=== PATIENT | female | born 1940 | race Caucasian/White ===

== ENCOUNTER 2016-08-24 15:39 | Inpatient (IN) | payer MEDICAID, MEDICARE ==
[~2016-08-24] VITALS: Ht 170.2 cm; Wt 73.8 kg
[~2016-08-24 15:39] MED LIST: APIX5TAB PO; Acetaminophen PO; BISA10SU61 RC; DOCU-41 PO; GABA-502 PO; LIRA0.6P SQ; LOSA100T29 PO; METF500T4 PO; METH750T3 PO; METO75TA PO; OMEP40CA36 PO; POLY17PO6 PO; PRAV40TA PO; PSEU240T6 PO; PTU50T PO; Senna/Docusate Sodium PO
--- NOTE | 2016-08-24 15:41 | ED.REPORT ---
HPI-Neurologic Deficit Date of Service Aug 24, 2016 ED Provider: Timi Lincoln MD Nursing Notes Stated Complaint: NEUROLOGICAL DEFICIT Allergies: Coded Allergies: Penicillins (Verified Allergy, Unknown, SWELLING, 03/17/16) Scheduled ([Senna/Docusate Sodium]) 1 TABLET TABLET 1 TABLET PO BID Apixaban (Eliquis) 5 Mg Tablet 5 MG PO BID Docusate Sodium (Colace) 100 Mg Capsule 100 MG PO BID Gabapentin (Gabapentin) 300 Mg Capsule 300 MG PO TID Liraglutide (Victoza 2-Davie) 0.6 Mg/0.1 Ml Pen.injctr 1.2 ML SQ DAILY Losartan Potassium (Losartan Potassium) 100 Mg Tablet 50 MG PO BID Metoprolol Tartrate (Metoprolol Tartrate) 75 Mg Tablet 75 MG PO BID Polyethylene Glycol 3350 (Miralax) 17 Gm Powd.pack 17 GM PO DAILY Pravastatin (Pravastatin) 40 Mg Tablet 40 MG PO DAILY Propylthiouracil (Propylthiouracil) 50 Mg Tablet 50 MG PO DAILY Scheduled PRN ([Acetaminophen]) 325 MG TABLET 975 MG PO Q6H PRN PRN For Pain Bisacodyl (Dulcolax Rectal) 10 Mg Supp.rect 10 MG RC DAILY PRN PRN For Constipation Metformin (Metformin) 500 Mg Tablet 500 MG PO DAILY PRN PRN sugar Methocarbamol (Methocarbamol) 750 Mg Tablet 750 MG PO TID PRN PRN For Spasm Omeprazole (Omeprazole) 40 Mg Capsule.dr 40 MG PO DAILY PRN PRN For Dyspepsia or Heartburn Pseudoephedrine HCl (Sudafed 24-Hour) 240 Mg Tab.er.24h 240 MG PO DAILY PRN PRN allergies/ sinus Past Medical History Past Medical History HTN CAD reflux asthma depression hypothyroid Past Surgical History back surgery eye surgery four way bypass in 2012 in [place] hip fx repair Smoking History Never Smoker Social History Alcohol Use: Denies alcohol use Drug Use: Denies drug use Ambulatory Status Independent Discharge & Departure Referrals: NOPCP (PCP) Timi Lincoln MD Aug 24, 2016 15:41
[2016-08-24 15:47] VITALS: BP 183/61; PULSE 57; RESP 16; O2SAT 99
--- NOTE | 2016-08-24 15:47 | ED.REPORT ---
HPI-Neurologic Deficit Date of Service Aug 24, 2016 ED Provider: Bennie Scruggs MD Patient is a 76 year old female with a history atrial fibrillation, coronary artery disease with prior cardiac stenting, CABG 4x, hyperlipidemia, hypertension, and diabetes mellitus who presents to the ED via EMS after she developed slurred speech and difficulty speaking at 3pm. Her reports that they went into [employer] and that the patient suddenly developed slurred speech and difficulty forming words. The left side of her eye was open wide and the left side of her face appeared paralyzed. She was able to tell her that something was not right. Her states that she is back to her baseline at this time, other than being confused. EMS states that the patient had slurred speech and appeared confused when they arrived. Patient reports having a severe headache on arrival to the ED. The patient states speaking "feels strange" and that she is unsure if she is actually making sense. The patient believes that she started slurring her speech earlier than her 's timeline, as he is hard of hearing. She also believes that she has had these symptoms intermittently for the past week, but that her was not aware of them occurring. Patient reports that throughout the week she had been using her cane to ambulate, often falling and feeling weak. She then transitioned to using her walker when ambulating. She reports having several episodes of dizziness, confusion, and generally feeling unwell. The patient is on Eliquis and has not previously had a stroke. Nursing Notes Stated Complaint: NEUROLOGICAL DEFICIT Nursing Notes Reviewed: Yes Allergies: Coded Allergies: Penicillins (Verified Allergy, Unknown, SWELLING, 03/17/16) Scheduled ([Senna/Docusate Sodium]) 1 TABLET TABLET 1 TABLET PO BID Apixaban (Eliquis) 5 Mg Tablet 5 MG PO BID Docusate Sodium (Colace) 100 Mg Capsule 100 MG PO BID Gabapentin (Gabapentin) 300 Mg Capsule 300 MG PO TID Liraglutide (Victoza 2-Davie) 0.6 Mg/0.1 Ml Pen.injctr 1.2 ML SQ DAILY Losartan Potassium (Losartan Potassium) 100 Mg Tablet 50 MG PO BID Metoprolol Tartrate (Metoprolol Tartrate) 75 Mg Tablet 75 MG PO BID Polyethylene Glycol 3350 (Miralax) 17 Gm Powd.pack 17 GM PO DAILY Pravastatin (Pravastatin) 40 Mg Tablet 40 MG PO DAILY Propylthiouracil (Propylthiouracil) 50 Mg Tablet 50 MG PO DAILY Scheduled PRN ([Acetaminophen]) 325 MG TABLET 975 MG PO Q6H PRN PRN For Pain Bisacodyl (Dulcolax Rectal) 10 Mg Supp.rect 10 MG RC DAILY PRN PRN For Constipation Metformin (Metformin) 500 Mg Tablet 500 MG PO DAILY PRN PRN sugar Methocarbamol (Methocarbamol) 750 Mg Tablet 750 MG PO TID PRN PRN For Spasm Omeprazole (Omeprazole) 40 Mg Capsule.dr 40 MG PO DAILY PRN PRN For Dyspepsia or Heartburn Pseudoephedrine HCl (Sudafed 24-Hour) 240 Mg Tab.er.24h 240 MG PO DAILY PRN PRN allergies/ sinus General Time Seen by Provider: 15:45 Chief Complaint Slurred speech (difficulty speaking) Hx Obtained From: Patient Arrived By: Ambulance Sudden in Onset?: Yes Onset Occurred: 46 - 59 minutes ago Symptom Duration: Since onset Location: : Head Severity: Current: Moderate Severity: Maximum: Moderate Recent Healthcare: No recent doctor visit, No recent hospitalization Similar Sx Previous: No Risk Factors NIH Stroke Scale Level of Consciousness: Alert and responsive (0) Ask Month & Age: 1 question right (1) Open/Close Eyes/Hand Assistant Printer Floor Covering: Performs both tasks (0) Horizontal EO Movements: None (0) Visual Lyles: No visual loss (0) Facial Palsy: Normal symmetry (0) Right Arm Motor Drift (10s): No drift 10 sec (0) Left Arm Motor Drift (10s): No drift 10 sec (0) Right Leg Motor Drift (5s): No drift 5 sec (0) Left Leg Motor Drift (5s): No drift 5 sec (0) Limb Ataxia FNF/Heel-Chu: No ataxia (0) Sensation (Arms/Legs/Face): No sensory loss (0) Language Aphasia: No aphasia, normal (0) Dysarthria: No dysarthria, normal (0) Extinction/Inattention: No exctinct/inattent (0) NIHSS Score: 1 Time NIHSS Performed: 16:15 Date NIHSS Performed: Aug 24, 2016 Past Medical History Past Medical History acid reflux hypothyroid atrial fibirllation on Eliquis diabetes mellitus - does not typically take insulin, Humalog not covered by new insurence. On Metformin. Reports: Asthma, Coronary artery disease, Hyperlipidemia, Hypertension Reports: Depression Past Surgical History back surgery eye surgery four way CABG in 2013 in [place] Cardiac stenting 2x Left hip fracture status post surgery 03/12 Smoking History Never Smoker Social History Alcohol Use: Denies alcohol use Drug Use: Denies drug use Other Social History: Good social support, , Local resident Ambulatory Status Independent Review of Systems Constitutional: Denies: Chills, Fever Neurologic: Reports: Dizziness, Headache, Lightheaded, Slurred speech, Unable to speak, Weakness Complete sys rev & neg: except as marked. Physical Exam Initial Vital Signs Vital Signs (First) Date Time Temp Pulse Resp B/P Pulse Ox O2 Delivery O2 Flow Rate FiO2 08/24/16 15:47 36.6 57 16 183/61 99 Room Air Initial VS: Reviewed ENT: Conjunctiva normal, No scleral icterus Neck: Supple, Full range of motion Abdomen / GI: Soft, Non-tender Extremities: Vascular intact, Neuro intact, No swelling Skin: Warm, Dry, No cyanosis Psychiatric: Mood/affect normal, Behavior normal, Normal thought content General/Constitutional: Awake, Alert mild confusion but able to answer questions Head / Eyes: Atraumatic, Normocephalic, PERRL, EOMI, No nystagmus Respiratory / Chest: Breath sounds NL, Breath sounds = bilat, No respiratory distress, No rales, No rhonchi, No wheezing Cardiovascular: Heart rate NL, Regular rhythm, Heart sounds NL, No murmurs Neurologic: No motor deficits Mental Status: Positive: Disoriented to time (Month unknown on initial evaluation) see NIH stroke scale for full exam numbness of left upper extremity Interpretation & Diagnostics Lab Results Interpretation Result Diagram: 08/24/16 1555 08/24/16 1555 Test 08/24/16 15:50 08/24/16 15:55 08/24/16 16:55 Hold Melgar Top Tube Received (Received) White Blood Count 6.0th/mm3 (3.8-10.1) Red Blood Count 4.46mil/mm3 (3.90-5.20) Hemoglobin 12.3g/dL (12.0-15.6) Hematocrit 37.9% (35.0-46.0) Mean Corpuscular Volume 85.0fL (81-100) Mean Corpuscular Hemoglobin 27.6pg (27.0-35.0) Mean Corpuscular Hemoglobin Concent 32.5% (32.0-37.0) Red Cell Distribution Width 14.6% (12.3-15.4) Platelet Count 176bil/L (150-400) Neutrophils (%) (Auto) 47.3% (40-74) Lymphocytes (%) (Auto) 40.7% (14-46) Monocytes (%) (Auto) 9.6% (4-12) Eosinophils (%) (Auto) 1.7% (0-5) Basophils (%) (Auto) 0.5% (0-3) Prothrombin Time 10.3sec (8.1-12.5) Prothromb Time International Ratio 0.96ratio Activated Partial Thromboplast Time 24.1sec (22.8-33.0) Sodium Level 138mEq/L (134-144) Potassium Level 4.3mEq/L (3.5-5.2) Chloride Level 99mEq/L (97-108) Carbon Dioxide Level 26mmol/L (18-29) Blood Urea Nitrogen 14mg/dL (8-27) Creatinine 0.46mg/dL (0.57-1.00) Estimat Glomerular Filtration Rate 190mL/min (>59) Glucose Level 127mg/dL (60-99) Calcium Level 9.7mg/dL (8.5-10.1) Total Bilirubin 0.4mg/dL (0.0-1.2) Aspartate Amino Transf (AST/SGOT) 18U/L (0-50) Alanine Aminotransferase (ALT/SGPT) 11U/L (0-32) Alkaline Phosphatase 60U/L (25-165) Troponin T < 0.010ug/L (0.0-0.011) Total Protein 7.1g/dL (6.4-8.4) Albumin 4.2g/dL (3.4-5.0) Urine Color Yellow (YELLOW) Urine Appearance Hazy (CLEAR,HAZY) Urine pH 6.0 (5.0-8.0) Urine Specific [employer] 1.010 (1.003-1.035) Urine Protein Negativemg/dL (NEG,TRACE) Urine Glucose (UA) 250mg/dL (NEGATIVE) Urine Ketones Negativemg/dL (NEGATIVE) Urine Occult Blood Moderate (NEGATIVE) Urine Nitrite Negative (NEGATIVE) Urine Bilirubin Negative (NEGATIVE) Urine Urobilinogen Normalmg/dL (NORMAL) Urine Leukocyte Esterase Trace (NEGATIVE) Urine RBC 3-10/hpf (0-2) Urine WBC 6-10/hpf (0-5) Urine Epithelial Cells Few/hpf (NONE-MOD) Urine Crystals None seen (NONE SEEN) Urine Bacteria Many/hpf (NONE-FEW) Urine Hyaline Casts None/lpf (NONE) Urine Granular Casts None seen (NONE SEEN) Urine Waxy Casts None seen (NONE SEEN) Urine Red Blood Cell Casts None seen (NONE SEEN) Urine White Blood Cell Casts None seen (NONE SEEN) Urine Mucus None seen (None Seen) Urine Trichomonas None seen (NONE SEEN) Urine Yeast None (NONE SEEN) Urinalysis Comment None Urine Culture Reflexed Indicated ECG Interpretation ECG Interpretation: sinus rhythm, rate [address] elevation. T wave inversions lead III, V1. Unchanged from prior EKG. Time: 16:31 Interpreted by: ED physician CT Head Interpretation IMPRESSION: No acute intracranial abnormality. Findings relayed to Dr. Scruggs via ER frontdesk staff Carleen on 08.24.16 16:17 hours. This study fulfills neurological imaging criteria for inclusion or exclusion of acute stroke therapies based on available published neurological guidelines. Dictated by: Fiona Randle M.D. on 08/24/2016 at 16:18 Approved by: Fiona Randle M.D. on 08/24/2016 at 16:18 Study: Head CT no contrast Interpretation / Wet Read by: Interpret - Radiologist Re-Eval/Medical Decision Med Decision/Clinical Course 76-year-old female history of CAD, atrial fibrillation on eliquis, CABG visiting with episode of facial droop, LLE weakness, at 3 PM today which resolved prior to arrival. Also with some right upper extremity numbness. Her stroke scale was 1 due to right upper extremity numbness. Initially she did not know the month was able to recall this several minutes later. CT head normal. Blood pressures elevated systolics 170s. I spoke with Vietnamese neurologist as above who recommended no TPA given low stroke scale. Urine suggestive possible UTI was given one dose Rocephin. Patient be admitted to hospitalist service for stroke workup. Source of Hx: Old records Re-Evaluation/Progress #1: Time of Eval: 16:08 Re-Evaluation/Progress Note: Spoke to the again. Confirmed onset as 3pm, no symptoms like this previously. She has not previously had a stroke. Re-Evaluation/Progress #2: Time of Eval: 16:14 Re-Evaluation/Progress Note: Patient is back from CT scan, CT scan was negative. Patient is now able to identify the month as August, unlike initial evaluation. Still states it is 2016, but it is close to the beginning of 2017. NIH stroke scale preformed. Re-Evaluation/Progress #3: Time of Eval: 17:06 Patient Status: Condition improved Re-Evaluation/Progress Note: Rechecked the patient. Further discussed the CT scan findings, TPA not indicated. Patient understands and agrees with the plan for hospital admission. Will await further lab results. Attempt CPR. Re-Evaluation/Progress #4: Time of Eval: 18:12 Re-Evaluation/Progress Note: Informed the patient of plan to admit the patient to [facility]. All questions were addressed. Consultation #1: Consulted With: Neurology Call Returned at: 16:25 Quahogger: Agrees with eval, Agrees with plan Note: Spoke with Vietnamese stroke neurologist, Dr. Watts. He agrees with assessment and recommends NO TPA. Consultation #2: Referral / Consult Name: Grace Owens MD Consulted With: Hospitalist Call Returned at: 18:13 Quahogger: Will see patient, Agrees with eval, Agrees with plan, Accepts admit Note: Spoke with Dr. Owens, hospitalist, who agrees to accept admit. Counseled Regarding: Diagnosis, Lab results, Need for admission Discharge & Departure Impression: Primary Impression: CVA (cerebral vascular accident) CVA mechanism: unspecified Qualified Code: I63.9 - Cerebral infarction, unspecified Additional Impression: UTI (urinary tract infection) Urinary tract infection type: acute cystitis Hematuria presence: with hematuria Qualified Code: N30.01 - Acute cystitis with hematuria Disposition: ADMITTED TO HOSPITAL Discharge Condition All VS Reviewed: Yes Condition: Stable Scribe Attestation Portions of this note were transcribed by Stephanie Bryant. I, Dr. Scruggs personally performed the history, physical exam and medical decision-making; I reviewed and confirmed the accuracy of the information in the transcribed note. Signed by: Lili Song, 08/24/2016 1814 Bennie Scruggs MD Aug 24, 2016 15:47 Stephanie Bryant Aug 24, 2016 16:05
[2016-08-24 16:03] LABS: BASOPHILS % (AUTO) 0.5 % (0-3); EOSINOPHILS % (AUTO) 1.7 % (0-5); MONOCYTES % (AUTO) 9.6 % (4-12); Mean Corpuscular Hemoglobin 27.6 pg (27.0-35.0); NEUTROPHILS % (AUTO) 47.3 % (40-74); Platelet Count 176 bil/L (150-400)
[2016-08-24 16:14] LABS: INR 0.96 ratio
--- NOTE | 2016-08-24 16:20 | DRSVH ---
PROCEDURE: CT BRAIN (TPA) ([id number]) INDICATIONS: Stroke TECHNIQUE: Noncontrast 4.5 mm thick angled axial sections acquired from the foramen magnum to the vertex, with c oronal reformats. COMPARISON: [facility], CT, CT BRAIN WO CON, 03/17/2016, 15:38. FINDINGS: Image quality: Excellent. CSF spaces: Basal cisterns are patent. No extra-axial fluid collections. The ventricles are symmet hui in size and shape. Brain: No intracranial bleeds or masses. There is cerebral volume loss for age, with resultant vent ricular and sulcal prominence. There are periventricular and deep white matter chronic small vessel ischemic changes. There is intracranial internal carotid artery atherosclerosis. Skull and face: Calvarium and visualized facial bones appear intact, without suspicious lesions. Sinuses: Visualized sinuses and mastoids are clear. IMPRESSION: No acute intracranial abnormality. Findings relayed to Dr. Scruggs via ER frontdesk staff Carleen on 08.24.16 16:17 hours. This study fulfills neurological imaging criteria for inclusion or exclusion of acute stroke therapie s based on available published neurological guidelines. Dictated by: Fiona Randle M.D. on 08/24/2016 at 16:18 Approved by: Fiona Randle M.D. on 08/24/2016 at 16:18
[2016-08-24 16:28] LABS: TROPONIN T < 0.010 ug/L (0.0-0.011)
--- NOTE | 2016-08-24 16:58 | NUR ---
Evaluation completed. Rec: Thin/Soft. Medication as tolerated Please go to "Notes" then click on "Assessments and Notes" (bottom left corner of screen). Then select appropriate discipline tab on top of screen.
[2016-08-24 17:06] LABS: APPEARANCE,URINE HAZY (CLEAR,HAZY); COLOR,URINE YELLOW (YELLOW)
[2016-08-24 17:07] LABS: OCCULT BLOOD,URINE MODERATE (NEGATIVE); UROBILINOGEN,URINE NORMAL (NORMAL)
[2016-08-24 17:39] VITALS: BP 181/51; PULSE 55; RESP 23; O2SAT 94
[2016-08-24] MEDS ORDERED: cefTRIAXone Inj 1,000 MG in IV Premix 1 EACH IV ONE (17:45)
[2016-08-24] MEDS ORDERED: Ondansetron 2 mg/mL 2 mL Inj IVPUSH PRN (18:20)
[2016-08-24] MEDS ORDERED: Alum-Mag Hydrox-Simeth 30 mL Suspension PO PRN (18:20)
[2016-08-24] MEDS ORDERED: Glucose 40% Oral Gel 15 Gm Tube PO PRN (19:05)
[2016-08-24 19:09] VITALS: BP 162/53; PULSE 55; RESP 20; O2SAT 97
--- NOTE | 2016-08-24 19:09 | PCM.HPMED ---
Subjective Date of Service Aug 24, 2016 Primary Provider: Admitting Physician: Primary Care Physician: Chris Marte MD Attending Physician: Chief Complaint: Left facial droop, dysarthria, right upper extremity numbness HISTORY was OBTAINED FROM PATIENT / [facility] NOTES History of present illness 76-year-old female, on eliquis, Last admitted 03/2016 w/ new onset afib associated acute delirium successfully cardioverted, on her way to [facility] one w/ in care, when left facial droop and slurred speech and word finding started at 3 PM sudden onset, associated with bilateral upper extremity weakness (lost dev technical mgr on her walker out of the care but caught herself against car door), but now ongoing left upper extremity and left facial numbness and ongoing forehead headache and dizziness. No prior CVA. She had headaches throughout the week intermittently, and generalized weakness and falling with her cane x3 this week. She had been told by PCP to use walker. Eliquis was started by school health aide. In the ER, confusion resolved/left facial droop resolved/word finding resolved/ dysarthria resolved, hypertension 183/63, Sinus rhythm. Speech therapist- advance diet to thin and soft with medications, [place] indicated no TPA. UA positive, Rocephin, CT head negative. Review of Systems - none of the following - F/C/sick contact / sob / cough / cp / acid reflux / n/v/diarrhea / bleeding/bruising / change in voiding / dysuria/ rash Hearing impairment poor historian SOCIAL HISTORY: no tobacco/alcohol Medications Scheduled ([Senna/Docusate Sodium]) 1 TABLET TABLET 1 TABLET PO BID Apixaban (Eliquis) 5 Mg Tablet 5 MG PO BID Docusate Sodium (Colace) 100 Mg Capsule 100 MG PO BID Gabapentin (Gabapentin) 300 Mg Capsule 300 MG PO TID Liraglutide (Victoza 2-Davie) 0.6 Mg/0.1 Ml Pen.injctr 1.2 ML SQ DAILY Losartan Potassium (Losartan Potassium) 100 Mg Tablet 50 MG PO BID Metoprolol Tartrate (Metoprolol Tartrate) 75 Mg Tablet 75 MG PO BID Polyethylene Glycol 3350 (Miralax) 17 Gm Powd.pack 17 GM PO DAILY Pravastatin (Pravastatin) 40 Mg Tablet 40 MG PO DAILY Propylthiouracil (Propylthiouracil) 50 Mg Tablet 50 MG PO DAILY Scheduled PRN ([Acetaminophen]) 325 MG TABLET 975 MG PO Q6H PRN PRN For Pain Bisacodyl (Dulcolax Rectal) 10 Mg Supp.rect 10 MG RC DAILY PRN PRN For Constipation Metformin (Metformin) 500 Mg Tablet 500 MG PO DAILY PRN PRN sugar Methocarbamol (Methocarbamol) 750 Mg Tablet 750 MG PO TID PRN PRN For Spasm Omeprazole (Omeprazole) 40 Mg Capsule.dr 40 MG PO DAILY PRN PRN For Dyspepsia or Heartburn Pseudoephedrine HCl (Sudafed 24-Hour) 240 Mg Tab.er.24h 240 MG PO DAILY PRN PRN allergies/ sinus PMHx [id number] 2002 and stents essential hypertension, Diabetes mellitus hypercholesterolemia, GERD, asthma, depression, hypothyroidism. Cataracts Sinus congestion Arthritis/hip repair-hip fracture, left hip surgery on March 12, 2016. Back surgery Edema Pneumonia Skin cancer removed Allergies Coded Allergies: Penicillins (Verified Allergy, Unknown, SWELLING, 03/17/16) PMH Social History Hx Alcohol Use: No Hx Substance Use: No Hx Tobacco Use: No Smoking Status: Never Smoker Exam Vital Signs Vital Sign - Last Date Time Temp Pulse Resp B/P Pulse Ox O2 Delivery O2 Flow Rate FiO2 08/24/16 17:39 55 23 181/51 94 Room Air 08/24/16 15:47 36.6 Lab and Diagnostics Labs Exam on admission NAD A and O x 3 mood affect WNL NC/AT no icterus no injected eyes EOMI PERRL /no pharyngeal lesions/ no oral lesions / hearing deficit Supple neck CTAB equal chest rise / no accessory muscle use / speaks in full sentences / no rrw RRR [id number] S2 / no mrg / 2+ radial pulses Soft nt nd + BS no hepatosplenomegaly No edema no cyanosis no ecchymosis of lower extremities No rash / no jaundice BULLARD CNII-XII grossly intact symmetrical No dysmetria of bilateral upper and lower limbs Strength grossly intact of bilateral upper and lower limbs no facial droop Sensation diminshed on left face, left upper extremity EKG SR no ST changes UA + clemente esterase and bacteria, no yea CT BRAIN (TPA) ([id number]) INDICATIONS: Stroke TECHNIQUE: Noncontrast 4.5 mm thick angled axial sections acquired from the foramen magnum to the vertex, with coronal reformats. COMPARISON: [facility], CT, CT BRAIN WO CON, 03/17/2016, 15:38. FINDINGS: Image quality: Excellent. CSF spaces: Basal cisterns are patent. No extra-axial fluid collections. The ventricles are symmetric in size and shape. Brain: No intracranial bleeds or masses. There is cerebral volume loss for age , with resultant ventricular and sulcal prominence. There are periventricular and deep white matter chronic small vessel ischemic changes. There is intracranial internal carotid artery atherosclerosis. Skull and face: Calvarium and visualized facial bones appear intact, without suspicious lesions. Sinuses: Visualized sinuses and mastoids are clear. IMPRESSION: No acute intracranial abnormality. Findings relayed to Dr. Fortino Velazquez via ER frontdesk staff Carleen on 08.24.16 16:17 hours. This study fulfills neurological imaging criteria for inclusion or exclusion of acute stroke therapies based on available published neurological guidelines. 03/19/16 Echocardiogram Report Interpretation Summary The left ventricle is normal in size. The ejection fraction is estimated to be 60-65%. There has been no significant change in LV EF since the previous study. The right ventricle is mildly dilated. Right ventricular size has increased since the prior echo exam. Right ventricular systolic function is mildly reduced. This is decreased compared to the previous study. The left atrium is severely dilated. The left atrium has mildly increased in size since the prior echo exam. The right atrium is moderately dilated. The right atrium has mildly increased in size since the prior echo exam. There is mild to moderate mitral regurgitation. Compared to the prior echo study, there has been an increase in the severity of mitral regurgitation. There is moderate to severe tricuspid regurgitation. Compared to the prior echo exam, there has been no change in TR severity. The right ventricular systolic pressure is estimated at 39 mmHg assuming a right atrial pressure of 15 mm Hg. The IVC is dilated (diameter is greater than 2.1 cm) and it collapses less than 50% with a sniff. This suggests a high right atrial pressure of 15 mm Hg. The patient was in atrial fibrillation with rapid ventricular response during the exam with a heart rate exceeding 100 bpm (New finding). Result Diagram: 08/24/16 1555 08/24/16 1554 Assessment & Plan Active issues and reason for admission New-onset CVA, resolved left facial droop/dysarthria, ongoing left facial and left upper extremity numbness -- MRI/permissive hypertension/serial troponin. 03/2016 echo. pending repeat echo. Carotid Dopplers. Lipid panel, start ASA -- 03/2016 atrial fibrillation was successfully cardioverted, but ongoing eliquis use, unclear if she has paroxysymal a fib since 03/2016 and told by school health aide to not use plavix or ASA w/ eliquis UTI, asymptomatic -- Rocephin, pending cultures Generalized weakness --contributory hip repair 03/2016 --pending PT/OT for CVA Chronic issues known prior to admission, present on admission [id number] 2002 and stents essential hypertension Diabetes mellitus hypercholesterolemia, GERD asthma depression hyperthyroidism Cataracts Sinus congestion --SSI / resume all other home meds except antihypertensive Diet dysphagia per VETERINARY TECHNOLOGY INSTRUCTOR DVT prophylaxis lovenox scd ambulate Code full Disposition inpt status Assessment and plan were discussed with patient. Grace Owens MD Aug 24, 2016 19:09 Disposition inpt status Assessment and plan were discussed with patient family. Grace Owens MD Aug 24, 2016 19:09
[2016-08-24 19:10] VITALS: BP 173/63; PULSE 57; RESP 17; O2SAT 98
[2016-08-24 20:13] VITALS: BP 190/70; PULSE 52; RESP 18; O2SAT 98
[2016-08-24] MEDS ORDERED: METF500T4 PO (20:51)
[2016-08-24] MEDS ORDERED: METO50TA3 PO (21:34)
[2016-08-24] MEDS ORDERED: ROSU20TA27 PO (21:34)
[2016-08-24] MEDS ORDERED: METH750T3 PO (21:34)
[2016-08-24] MEDS ORDERED: LOSA100T29 PO (21:34)
[2016-08-24] MEDS ORDERED: OMEP40CA36 PO (21:34)
[2016-08-24] MEDS ORDERED: hydrALAZINE 20 mg/mL Inj IVPUSH PRN (21:35)
[2016-08-24] MEDS ORDERED: Labetalol 5 mg/mL 4 mL Inj IVPUSH PRN (21:35)
[2016-08-24] MEDS ORDERED: LOSA50TA37 PO (21:36)
[2016-08-24] MEDS: Insulin LISPRO 300 Unit/3 mL Inj SUBQ SCH (21:40)
[2016-08-24] MEDS: Heparin 5,000 Unit/mL Inj SUBQ SCH (21:40)
[2016-08-24] MEDS ORDERED: ACET325T51 PO (21:46)
[2016-08-24] MEDS ORDERED: GABA-502 PO (21:46)
--- NOTE | 2016-08-24 22:00 | NUR ---
admit note/med rec Pt is admitted to room 3023 from ED around 20:00 for CVA, UTI. Pt is A&Ox4; stating she's able to remember things and events now. No weakness or facial droop noted. able to tolerated diet w/o signs of aspiration. SBA to the bathroom; gait steady. Pt is oriented to room and plan of care; she verbalized understanding. med rec completed through pt's , Pat looking at pt's medication bottles from home. Pt verified all meds. Addendum: 08/25/16 at 0517 by ADY MAYEN RN tylenol given for headache with good relief. No neuro deficits for the rest of the shift. slept most of the night.
[2016-08-24 22:20] LABS: INR 0.99 ratio
[2016-08-24 22:46] VITALS: BP 165/61; PULSE 55
[2016-08-25] VITALS (7 sets, daily range): BP systolic 111–176; BP diastolic 54–71; PULSE 50–61; RESP 18; O2SAT 95–97
[2016-08-25] MEDS: 0.9% Sodium Chloride 1,000 ML IV SCH ×2 (03:48→15:35)
[2016-08-25] MEDS: cefTRIAXone Inj 1,000 MG in IV Premix 1 EACH IV SCH (08:05)
[2016-08-25] MEDS: Insulin LISPRO 300 Unit/3 mL Inj SUBQ SCH ×4 (08:05→20:43)
[2016-08-25] MEDS: Pantoprazole 40 mg ER24 Tablet PO SCH (08:06)
[2016-08-25] MEDS: Heparin 5,000 Unit/mL Inj SUBQ SCH ×2 (08:07→17:13)
[2016-08-25] MEDS: PROPYLTHIOURACIL 50 MG PO SCH (08:07)
--- NOTE | 2016-08-25 09:55 | DRSVH ---
PROCEDURE: US BILATERAL DUPLEX DOPPLER IMAGING OF THE CAROTIDS ([id number]) INDICATIONS: Evaluate stroke follow up TECHNIQUE: Color and pulse Doppler interrogation was performed of both carotid systems, with image documentation and velocity measurements. COMPARISON: None. FINDINGS: All stenosis calculations are based on NASCET criteria. Right side: Brachial blood pressure: 126/57 mm Hg. Common Carotid Artery(Distal) PSV: 71.50 cm/s Internal Carotid Artery PSV- Proximal: 95.90 cm/s Mid-lon.40 cm/s Distal: 118.30 cm/s EDV - Proximal: 22.50 cm/s Mid-lon.10 cm/s Distal: 29.10 cm/s External Carotid Artery(Proximal) PSV: 118.30 cm/s ICA/CCA PSV ratio: 1.7 Cruz scale imaging description: There is mild calcified plaque at the carotid bifurcation extending i nto the carotid bulb and proximal external carotid artery. Percent internal carotid artery stenosis: Less than 50%. Vertebral artery: Flow direction is antegrade. Left side: Brachial blood pressure: 111/54 mm Hg. Common Carotid Artery(Distal) PSV: 84.80 cm/s Internal Carotid Artery PSV - Proximal: 117.80 cm/s Mid-lon cm/s Distal: 130.50 cm/s EDV - Proximal: 24.40 cm/s Mid-lon.90 cm/s Distal: 26.80 cm/s External Carotid Artery(Proximal) PSV: 150.60 cm/s ICA/CCA PSV ratio: 1.9 Cruz scale imaging description: There is mild calcified plaque at the carotid bifurcation, and the ca rotid, and proximal external carotid artery. Percent internal carotid artery stenosis: Less than 50%. Vertebral artery: Flow direction is antegrade. IMPRESSION: 1. Lateral mild calcified plaque in the carotid bulbs with narrowing of less than 50%. Dictated by: Jonathan Mohan M.D. on 08/25/2016 at 9:53 Approved by: Jonathan Mohan M.D. on 08/25/2016 at 9:53
--- NOTE | 2016-08-25 11:19 | DRSVH ---
[facility] [address] [place] [address] Echocardiogram Report Name: SIERRA JACQUES JStudy Date : 08/25/2016 Height: 67 in Hospital Exam Location: [facility] Weight: 168 lb Gender: Female BSA: 1.9 m2 : 1940 Age: 76 yrs BP: 126/57 mmHg Reason For Study: STROKE Ordering Physician: HOSPITALIST EUGENIAerformed By: Juan Carlos Winslow Referring Physician: Gume JACKSON Interpretation Summary The left ventricle is normal in size. Left ventricular systolic function is normal. The ejection fraction is estimated to be 55-60%. LVEF is unchanged since prior study. There are no focal wall motion abnormalities. Assessment of diastolic parameters suggests a pseudonormalization pattern, consistent with elevated filling pressures. The right ventricle is normal in size and function. The right ventricular systolic pressure is estimated at 43 mmHg assuming a right atrial pressure of 8 mm Hg. The left atrium is severely dilated. The right atrium is moderately dilated. There is moderate mitral regurgitation. There is mild to moderate tricuspid regurgitation as well. TR has decreased and MR has slightly increased. There is no other significant valvular heart disease. The ascending aorta is mildly enlarged. There is no obvious cardiac source of embolus noted on this transthoracic echocardiogram. Follow-up with a HAVEN is suggested if cardiac source is still suspected. Procedure: A two-dimensional transthoracic echocardiogram with color flow and Doppler was performed. The study quality was technically adequate. Comparison is made with the echocardiogram of 03/20/16. The patient was in normal sinus rhythm during the exam. The patient was bradycardic with a heart rate of 51-60 beats per minute. Left Ventricle: The left ventricle is normal in size. There is normal left ventricular wall thickness. Left ventricular systolic function is normal. The ejection fraction is estimated to be 55-60%. There are no focal wall motion abnormalities. Assessment of diastolic parameters suggests a pseudonormalization pattern, consistent with elevated filling pressures. Right Ventricle: The right ventricle is normal in size and function. Atria: The left atrium is severely dilated. The right atrium is moderately dilated. The interatrial septum is intact with no evidence for an atrial septal defect. Mitral Valve: There is moderate mitral annular calcification. The mitral valve leaflets are mildly calcified. The mitral valve chordae are thickened and/or calcified. There is moderate mitral regurgitation. Aortic Valve: The aortic valve is trileaflet. The aortic valve opens well. No aortic regurgitation is present. Tricuspid Valve: The tricuspid valve is normal in structure and function. There is mild to moderate tricuspid regurgitation. The right ventricular systolic pressure is estimated at 43 mmHg assuming a right atrial pressure of 8 mm Hg. Pulmonic Valve: The pulmonic valve is normal in structure and function. There is trace pulmonic regurgitation. There is no other significant valvular heart disease. Great Vessels: The aortic root is normal size. The ascending aorta is mildly enlarged. The pulmonary artery is normal size. The IVC is dilated (diameter is greater than 2.1 cm) yet it collapses greater than 50% with a sniff. This suggests a right atrial pressure of 8 mm Hg. Pericardium/ Pleura There is no pericardial effusion. There is no pleural effusion. MMode/2D Measurements & Calculations LVIDd: 5.2 cm LA dimension: 3.5 cm RA long axis Ao root diam: 3.2 cm LVIDs: 3.3 cm Aortic Jxn: 2.6 cm FS: 36.2 % LA A2 area: 29.4 cm RA area asc Aorta Diam EPSS: 1.2 cm LA A4 area: 28.1 cm IVSd: 0.81 cm LA length (vol) : 21.3 cm Ao Arch Diam LVPWd: 0.94 cm RA vol (Proximal trans.) LA vol: 109.6 ml : 78.1 ml LA vol index RA : 41.6 mm2 IVC diam: 2.4 cm LV abdalla. diameter/BSALV sys. diameter/BSA RVD1 (basal) RVD2 (mid): 3.8 cm (cm/m^2): 2.7 (cm/m^2): 1.8 Doppler Measurements & Calculations Ao V2 max MV E max umberto MV E/A: 1.4 TR max umberto : 145.2 cm/sec : 130.6 cm/sec Med Peak E' Umberto : 294.4 cm/sec Ao max PG MV A max umberto TR max PG : 8.4 mmHg : 91.9 cm/sec E/E' med: 40.8 : 34.7 mmHg Ao mean PG MV A dur: 0.11 sec PA V2 max : 4.7 mmHg : 78.5 cm/sec PA mean PG PA Accel Time : 0.10 sec MV dec time Ao V2 mean PA V2 mean : 0.18 sec : 103.3 cm/sec : 55.0 cm/sec Ao V2 VTI: 37.4 cm PA pr(Accel) : 32.4 mmHg Reading Physician:SHERMAN
--- NOTE | 2016-08-25 12:14 | NUR ---
Evaluation completed. Please go to "Notes" then click on "Assessments and Notes" (bottom left corner of screen). Then select appropriate discipline tab on top of screen.
--- NOTE | 2016-08-25 12:32 | NUR ---
Off Unit: Patient transferred off unit to MRI via wheelchair accompanied by transporter @ approx 1230. radioisotope technician notified, telemetry removed.
--- NOTE | 2016-08-25 12:58 | PCM.PNMED ---
Subjective Date of Service Aug 25, 2016 Subjective Anahy reports that her memory has declined over the past month. She thinks that her speech is back to normal. She denies any current headache, but admits to some numbness in her right upper extremity that started yesterday afternoon. Exam Vital Signs Vital Sign - Last Date Time Temp Pulse Resp B/P Pulse Ox O2 Delivery O2 Flow Rate FiO2 08/25/16 09:49 37.3 58 18 176/68 96 Room Air Intake and Output 08/24/16 08/24/16 08/25/16 Cumulative From/Thru 15:00 23:00 07:00 08/24/16 20:13 - 08/25/16 06:51 Intake Total 270 ml 270 ml Output Total 500 ml 500 ml Balance -230 ml -230 ml Intake Oral 270 ml 270 ml Output Urine Total 500 ml 500 ml # Bowel Movements 0 0 Exam General: Well appearing elderly female sitting up in bed, comfortable appearing upon my entering the room. No acute distress. Awake and alert. HEENT: PERRLA. Moist mucus membranes. Tongue and uvula midline. Oropharynx without erythema Neck: Supple without JVD. Thyroid normal on palpation, nontender. Cardiovascular: RRR without murmur, rub, or gallop Respiratory: Good inspiratory effort without wheezes, rales, or rhonchi Abdomen: Normoactive bowel tones.Soft, nontender and nondistended. Neuro: Infrequent slurring of speech. No facial droop. Difficulty cooperating with visual field testing, unable to see right temporal field with either eye. Cranial nerves II-X intact. Normal finger to nose and heel to szymanski testing bilaterally. Known gait impairment secondary to a hip fracture in 02/2016. 5/5 track rider strength bilaterally. 5/5 shoulder and elbow strength bilaterally. 5/5 hip strength with flexion and extension bilaterally. Patellar DTRs bilaterally. IVs and Medications Medications Reviewed: Medications were reviewed in detail Lab and Diagnostics Result Diagram: 08/24/16 2645 08/24/16 6513 Assessment & Plan Anahy is a 76yo female with a hx of CAD s/p CABG and atrial fibrillation s/p successful cardioversion on Eliquis who has been admitted for the treatment of an ischemic cerebral vascular accident. Transient Ischemic Attack - No evidence on CT head, MR without contrast to be done today - Carotid doppler - Echocardiogram performed and report pending, review once available - Neuro examinations q4h - Start Aspirin daily along with Eliquis, discussed case with pts Forestry Supervisor Dr. Terrazas UTI, asymptomatic - Treating with ceftriaxone as a UTI may be contributing to her current condition - Consider discontinuing if MR is indicative of ischemia Generalized weakness secondary to #1 above and hip fracture with repair in 2015 - physical therapy and occupation therapy to evaluate Essential hypertension, chronic - Allow for permissive hypertension up to 220/120mmHg - Labetolol and hydralazine PRN hypertension - Holding home antihypertensive therapy at this time Cardiovascular disease history - Hx of CAD s/p CABG in 2002 and atrial fibrillation s/p cardioversion without known atrial fibrillation since that time Diabetes mellitus, chronic and stable - Using oral therapy at home, no home insulin use - Fingerstick blood glucose checks - Correctional lispro insulin Hypercholesterolemia, chronic and well controlled - Atorvastatin once daily at bedtime. - Had been taking rosuvastatin which is not on formulary, discussed with the patient that atorvastatin is in the same class of medication as rosuvastatin. She initially refused to take the atorvastatin as she did not understand that it was a replacement for the rosuvastatin while inpatient; verbally expressed agreement to take the atorvastatin after educating the patient on the medication Diet: dysphagia per speech acetaminophen PRN pain VTE Mechanical Devices: Anti-Embolic stockings Resuscitation Status: CPR: Attempt Resuscitation Attending Statement The patient was seen and examined together with Dr. Clarke on 08/25/2016 and I agree with the history, exam and plan as outlined in the note above. Connie Clarke DO Aug 25, 2016 12:58 Kevin Jacinto MD Aug 26, 2016 10:27
--- NOTE | 2016-08-25 14:28 | NUR ---
Evaluation completed. Please go to "Notes" then click on "Assessments and Notes" (bottom left corner of screen). Then select appropriate discipline tab on top of screen.
--- NOTE | 2016-08-25 15:06 | DRSVH ---
PROCEDURE: MRI BRAIN WITHOUT CONTRAST ([id number]) INDICATIONS: CVA TECHNIQUE: Non-contrast axial T1 spin echo, axial T2 fast spin echo, sagittal and axial FLAIR, coronal T2 fast s pin echo, axial gradient echo, axial diffusion and ADC through the brain. COMPARISON: None. FINDINGS: Image quality: Excellent. CSF spaces: Ventricles appear symmetric in size and shape. Basal cisterns are patent. No extra-axi al fluid collections. Brain: No intracranial bleeds or mass effects. There is cerebral volume loss for age. There are pe riventricular and deep white matter chronic small vessel ischemic changes. Brainstem appears normal. Diffusion-weighted images show no acute ischemic insults. No areas of encephalomalacia. No suscepti bility weighted abnormalities are identified in the brain parenchyma. A few, scattered, punctate foci of increased T2 signal noted in the periventricular and subcortical white matter tracts compatible w ith minimal chronic microvascular ischemic changes. Normal intravascular flow voids are present. Skull and face: Calvarial bone marrow is normal in signal. Orbits are normal. Sinuses: Sinuses and mastoids are clear. IMPRESSION: 1. No acute intracranial disease process. 2. No areas of acute or chronic infarction. 3. Mild, diffuse volume loss. 4. Minimal periventricular and subcortical white matter chronic microvascular ischemic changes. Dictated by: Oralia Costa MD, PhD on 08/25/2016 at 15:05 Approved by: Oralia Costa MD, PhD on 08/25/2016 at 15:05
--- NOTE | 2016-08-25 16:57 | NUR ---
Social Work: Initial Assessment D: Per EMR review, pt is a 76 year old female admitted for CVA, UTI. Pt is Medicare with no supplement, LTC insurance, or VA benefits. PCP is Chris Marte MD. NOK is Monica Blandon, spouse, . Pt states she has completed advanced directives- ADMINISTRATIVE SERVICES SPECIALIST requested copy. No readmit score entered at this time. ADMINISTRATIVE SERVICES SPECIALIST met with pt at bedside. Sw role explained. See initial assessment. Pt lives on [address] with her spouse, she uses a walker at baseline and does not drive. Pt worked with PT; pt cleared for discharge home with outpatient PT when ready. ADMINISTRATIVE SERVICES SPECIALIST reviewed this with pt. She agrees. Pt has never had HH or skilled rehab. A: Pt who is I at baseline. P: Anticipate pt to discharge home with no social work needs identified at this time. ADMINISTRATIVE SERVICES SPECIALIST to continue to follow and assist with dcp if needs arise. ANJANA Novak Addendum: 08/25/16 at 1703 by SUSAN HUNG Amended: Links added.
--- NOTE | 2016-08-25 17:46 | NUR ---
[facility] signed at [id number]
[2016-08-26] VITALS (10 sets, daily range): BP systolic 140–193; BP diastolic 54–79; PULSE 56–93; RESP 16–20; O2SAT 95–98
[2016-08-26] MEDS: 0.9% Sodium Chloride 1,000 ML IV SCH ×3 (01:24→19:30)
[2016-08-26] MEDS: Heparin 5,000 Unit/mL Inj SUBQ SCH ×3 (01:25→17:16)
[2016-08-26] MEDS: Insulin LISPRO 300 Unit/3 mL Inj SUBQ SCH ×4 (08:41→20:04)
[2016-08-26] MEDS: Pantoprazole 40 mg ER24 Tablet PO SCH (08:42)
[2016-08-26] MEDS: cefTRIAXone Inj 1,000 MG in IV Premix 1 EACH IV SCH (08:42)
[2016-08-26] MEDS: PROPYLTHIOURACIL 50 MG PO SCH (08:44)
--- NOTE | 2016-08-26 11:40 | NUR ---
Blood Pressure Pt was c/o generalized weakness and feeling light headed while using the BSC. Vitals showed pt is hypertensive. MD paged. Pt is anxious and worried about blood pressure. MD aware. Will continue to monitor.
[2016-08-26] MEDS ORDERED: cefTRIAXone Inj 1,000 MG in IV Premix 1 EACH IV ONE (11:50)
--- NOTE | 2016-08-26 12:35 | PCM.PNMED ---
Subjective Date of Service Aug 26, 2016 Subjective Anahy reports having had some mild dizziness upon standing earlier this morning which has resolved. Denies any chills, admits to generalized fatigue. Exam Vital Signs Vital Sign - Last Date Time Temp Pulse Resp B/P Pulse Ox O2 Delivery O2 Flow Rate FiO2 08/26/16 11:21 63 184/76 08/26/16 10:42 36.4 20 97 Room Air Intake and Output 08/25/16 08/25/16 08/26/16 Cumulative From/Thru 15:00 23:00 07:00 08/24/16 20:13 - 08/26/16 06:19 Intake Total 2338 ml 600 ml 3208 ml Output Total 350 ml 1300 ml 2150 ml Balance 1988 ml -700 ml 1058 ml Intake Oral 638 ml 600 ml 1508 ml IV Total 1700 ml 1700 ml Output Urine Total 350 ml 1300 ml 2150 ml # Bowel Movements 2 2 Exam General: Well appearing elderly female sitting up in bed, comfortable appearing upon my entering the room. No acute distress. Awake, alert, and oriented. HEENT: PERRLA. Moist mucus membranes. Tongue and uvula midline. Oropharynx without erythema Cardiovascular: RRR without murmur, rub, or gallop Respiratory: Good inspiratory effort without wheezes, rales, or rhonchi Abdomen: Normoactive bowel tones.Soft, nontender and nondistended. No CVA tenderness Neuro: Normal speech. No facial droop. Cranial nerves II-X intact. Normal finger to nose and heel to szymanski testing bilaterally. Known gait impairment secondary to a hip fracture in 02/2016. 5/5 manufacturing test technician strength bilaterally. Unable to stand from laying bed independently. Confused at times. Sporadically decreased short term memory. Psychiatric: Intermittent paranoia, did not remember why she is in the hospital. Paranoia resolved after discussion of her medical care. IVs and Medications Medications Reviewed: Medications were reviewed in detail Lab and Diagnostics Result Diagram: 08/24/16 7382 08/24/16 2629 Microbiology Urine culture: Klebsiella Pneumoniae >100,000 cfu Assessment & Plan Anahy is a 76yo female with a hx of CAD s/p CABG and atrial fibrillation s/p successful cardioversion on Eliquis who has been admitted for the treatment of altered mental status initially thought to possibly be a CVA, found to be a UTI. 1. Altered mental status secondary to UTI, improving though not yet resolved - No evidence of ischemia or hemorrhage on either CT or MR brain - Carotid doppler with <50% stenosis bilaterally - Start Aspirin daily along with Eliquis, discussed case with pts Early Childhood Special Educator Dr. Terrazas 2. Urinary tract infection with Klebsiella pneumoniae - Treating with ceftriaxone 2g daily - Repeat UA tomorrow - Anticipate transition to Augmentin PO BID when ready to discharge 3. Essential hypertension, chronic - Home antihypertensive therapy started - Reported dizziness may have been due to uncontrolled HTN when her home medications were not yet started 4. Generalized weakness secondary to #1 above and hip fracture with repair in 2015 - physical therapy working with the patient here - PT has recommended outpatient PT for balance 5. Cardiovascular disease history - Hx of CAD s/p CABG in 2002 and atrial fibrillation s/p cardioversion without known atrial fibrillation since that time - Continue Eliquis as discussed with her regulatory specialist, Dr Terrazas 6. Diabetes mellitus, chronic and stable - Using oral therapy at home, no home insulin use - Fingerstick blood glucose checks - Correctional lispro insulin 7. Hypercholesterolemia, chronic and well controlled - Atorvastatin once daily at bedtime. Diet: dysphagia per speech acetaminophen PRN pain VTE Prophylaxis: Sub-Q Heparin (Unfractionated) VTE Mechanical Devices: Anti-Embolic stockings Resuscitation Status: CPR: Attempt Resuscitation Attending Statement The patient was seen and examined together with Dr. Clarke on 08/26/2016 and I agree with the history, exam and plan as outlined in the note above. Connie Clarke DO Aug 26, 2016 12:35 Kevin Jacinto MD Aug 27, 2016 10:24
[2016-08-26] MEDS: cefTRIAXone Inj 2,000 MG in IV Premix 1 EACH IV SCH (14:45)
[2016-08-27] VITALS (7 sets, daily range): BP systolic 146–165; BP diastolic 62–72; PULSE 53–62; RESP 18; O2SAT 95–99
[2016-08-27] MEDS: Heparin 5,000 Unit/mL Inj SUBQ SCH ×3 (01:07→16:30)
[2016-08-27] MEDS: 0.9% Sodium Chloride 1,000 ML IV SCH ×2 (03:14→15:30)
--- NOTE | 2016-08-27 05:23 | NUR ---
Behavior Patient refused vitals at 0030. at 0100 patient was given heparin shot. She woke up unaware of place, time, situation. States that she has a door that goes outside of her room to the ground floor. Patient upset that I did not knock. Reoriented patient and informed her that she is at the hospital on the third floor and there is no door to the outside. Informed patient that I did knock on her door before entering. Patient agreed to heparin shot, at this time and went back to bed. at 0400 patient awoken for vitals. Patient reported to NAC that she thought that the nurse and him were playing games with her. She barricaded her door shut with the garbage can and hamper. reinforced to patient that we were not playing games with her but it is our job to monitor her vitals and keep her safe. Will continue to monitor. keep bed alarm on for safety
[2016-08-27] MEDS: PROPYLTHIOURACIL 50 MG PO SCH (07:59)
[2016-08-27] MEDS: Insulin LISPRO 300 Unit/3 mL Inj SUBQ SCH ×4 (08:00→21:24)
[2016-08-27] MEDS: Pantoprazole 40 mg ER24 Tablet PO SCH (08:00)
[2016-08-27] MEDS: cefTRIAXone Inj 2,000 MG in IV Premix 1 EACH IV SCH (08:02)
--- NOTE | 2016-08-27 09:21 | NUR ---
JANIE signed. ANJANA Stephens
[2016-08-27 09:44] LABS: BASOPHILS % (AUTO) 0.6 % (0-3); EOSINOPHILS % (AUTO) 3.3 % (0-5); MONOCYTES % (AUTO) 9.9 % (4-12); Mean Corpuscular Hemoglobin 27.5 pg (27.0-35.0); Mean Corpuscular Volume 84.7 fL (81-100); NEUTROPHILS % (AUTO) 53.1 % (40-74); Platelet Count 155 bil/L (150-400)
--- NOTE | 2016-08-27 10:31 | PCM.PNMED ---
Subjective Date of Service Aug 27, 2016 Subjective Pt doing much better today. She states she is feeling "much better" since being on antibiotics for her UTI. She denies any dysuria, fever, or flank pain. Pt states she still feels slightly confused at times but this has greatly improved over the last 1-2 days. Pt denies any focal weakness. Pt has no other complaints or concerns at this time. Exam Vital Signs Vital Sign - Last Date Time Temp Pulse Resp B/P Pulse Ox O2 Delivery O2 Flow Rate FiO2 08/27/16 06:21 62 08/27/16 05:02 36.5 18 165/70 99 Room Air Intake and Output 08/26/16 08/26/16 08/27/16 Cumulative From/Thru 15:00 23:00 07:00 08/24/16 20:13 - 08/27/16 06:25 Intake Total 1061 ml 1565 ml 300 ml 6134 ml Output Total 2700 ml 850 ml 5700 ml Balance 1061 ml -1135 ml -550 ml 434 ml Intake Oral 1490 ml 300 ml 3298 ml IV Total 1061 ml 75 ml 2836 ml Output Urine Total 2700 ml 850 ml 5700 ml # Bowel Movements 2 Exam GENERAL: NAD, Pt laying in bed comfortably HEENT: AT/NC, PERRLA, EOMI, Mucus Membranes are moist CARDIAC: RRR; No M/R/G PULM: CTAB; No wheezes or rhonchi bilaterally ABD: Soft, Nontender, Nondistended, Positive bowel sounds in all quadrants, No Hepatosplenomegaly appreciated NEURO: Alert and oriented x2-3; Following all commands PSYCH: Normal mood and affect IVs and Medications Medications Reviewed: Medications were reviewed in detail Lab and Diagnostics Result Diagram: 08/27/1692908/27/16929 Microbiology Urine culture: Klebsiella Pneumoniae >100,000 cfu Assessment & Plan Anahy is a 76yo female with a hx of CAD s/p CABG and atrial fibrillation s/p successful cardioversion on Eliquis who has been admitted for the treatment of altered mental status initially thought to possibly be a CVA, found to be a UTI. 1. Altered Mental Status - Improving - Secondary to UTI - Pt initially presented with symptoms suggestive of an acute CVA however MRI of the brain was negative - Continue to treat UTI with IV ABX - Mentation is significantly improved 2. Urinary Tract Infection - Present on admission - Urine culture positive for K. Pneumoniae - Continue IV Rocephin 2 grams daily for another day - Repeat UA with reflex culture today 3. Essential Hypertension - Continue home antihypertensive regimen - Continue to monitor BP closely 4. Coronary Artery Disease - Pt has a hx of CABG in 2002 - Pt is not presently on Aspirin but is on Eliquis 5. Diabetes Mellitus, Type II - Continue to hold home meds for now - Check FSBS q AC and HS - Continue medium dose SSI for now 6. Hypercholesterolemia - Continue daily Atorvastatin 7. Disposition - Anticipate discharge to home in AM without any needs as long as her mentation has returned to baseline VTE Prophylaxis: Sub-Q Heparin (Unfractionated) VTE Mechanical Devices: Anti-Embolic stockings Resuscitation Status: CPR: Attempt Resuscitation Kevin Jacinto MD Aug 27, 2016 10:31
--- NOTE | 2016-08-27 10:55 | NUR ---
Social Work-readiness for discharge: Data:EMR Reviewed. Pt is on day 3 of hospitalization for CVA and UTI per H&P. Per MD, pt may be ready to discharge tomorrow. PT and OT have both seen pt and recommended home no needs. SW followed up with pt at bedside, who confirms plan of home. Pt states her will provide transport home at discharge. No anticipated discharge needs. SW will continue to follow if needs arise. Assessment:Pt who is independent at baseline. Plan:Pt to discharge home with when medically stable via POV. No anticipated discharge needs. SW will continue to follow if needs arise. ANJANA Stephens
--- NOTE | 2016-08-27 19:26 | NUR ---
Activity: Patient has been calm and cooperative with care today. She had a shower assisted by the executive director of nursing. She has been conversationally appropriate and she states that she is "Feeling much better".
[2016-08-28 00:11] VITALS: PULSE 59
[2016-08-28] MEDS: Heparin 5,000 Unit/mL Inj SUBQ SCH ×2 (01:16→08:27)
[2016-08-28 01:17] VITALS: BP 150/57; PULSE 60; RESP 18; O2SAT 98
[2016-08-28] MEDS: 0.9% Sodium Chloride 1,000 ML IV SCH (01:30)
--- NOTE | 2016-08-28 04:22 | NUR ---
Mentation Patient upset over day shift staff member. Patient states that the staff member was more concerned about talking about her boyfriend than addressing the patients needs. Patient expressed that she was upset with her care. Notified charge nurse of patient concerns and accusations. Implemented group care when caring for patient. Patient accused NAC of playing tricks on her and she was going to lock the door on us. Reinforced to patient that we are here to care for her and we do not play any tricks on our patients. At 0300 patient set off bed alarm. Patient out of bed turning up heat in the room. Patient states I know I had that on 72 that aid hes playing tricks on me. If I find out that he messed with this I will kill him! Reinforced to patient that we are not playing tricks on her and no one touched the heat in her room. Communicated with charge nurse and NAC, will continue to group care.
[2016-08-28 06:01] VITALS: BP 168/85; PULSE 74; RESP 19; O2SAT 98
--- NOTE | 2016-08-28 06:41 | NUR ---
Behavior Patient awoke at 0500 stating "I need my morning medications now". "I can feel my blood sugar is way to high and if i don't get my metformin I will have a heart attack and " reassured patient that I will check her blood sugar. patient upset that I won't just give her her medications and states "Well I am just going to call your national facilities manager today and let her know that you won't give me my medications and I could " Patients blood sugar 143. Patient continues to request her AM medications. Patient reassured that her vitals are normal and her blood sugar is normal, there is no indications for medications at this time. I would need a providers order to give her her medications over 3 hours early. Patient then apologized and stated "I thought you said they were high earlier and I was concerned, I guess I can just wait and talk to the doctor about this in the morning."
[2016-08-28 07:11] LABS: BASOPHILS % (AUTO) 0.9 % (0-3); EOSINOPHILS % (AUTO) 4.5 % (0-5); MONOCYTES % (AUTO) 11.2 % (4-12); Mean Corpuscular Hemoglobin 26.7 pg (27.0-35.0); Mean Corpuscular Volume 84.1 fL (81-100); NEUTROPHILS % (AUTO) 38.4 % (40-74); Platelet Count 163 bil/L (150-400)
[2016-08-28] MEDS ORDERED: 0.9% Sodium Chloride 250 ML ONE (08:19)
[2016-08-28] MEDS: Pantoprazole 40 mg ER24 Tablet PO SCH (08:23)
[2016-08-28] MEDS: cefTRIAXone Inj 2,000 MG in IV Premix 1 EACH IV SCH (08:24)
[2016-08-28] MEDS: PROPYLTHIOURACIL 50 MG PO SCH (08:24)
[2016-08-28] MEDS: Insulin LISPRO 300 Unit/3 mL Inj SUBQ SCH (08:25)
[2016-08-28 08:51] VITALS: BP 128/63; PULSE 66; RESP 18; O2SAT 95
[2016-08-28] MEDS ORDERED: CIPR-198 PO (09:27)
--- NOTE | 2016-08-28 10:44 | PCM.DIMED ---
Connie Clarke DO 08/28/16 0936: Discharge Instructions Date of Service Aug 28, 2016 Dates of Hospitalization Aug 24, 2016 at 18:04 Discharge Diagnosis Discharge Diagnosis Altered Mental Status, improving Urinary Tract Infection, present on admission with antibiotics to complete at home Essential Hypertension, chronic and stable Coronary Artery Disease on eliquis, stable Diabetes Mellitus, Type II, stable Hypercholesterolemia, stable with good lipid panel results Medication Instructions You may return to taking your previous home medications with the addition of ciprofloxacin 1 tablet by mouth twice daily for 5 days. Make sure that you complete the entire course of antibiotic. Test Results Urine culture: Klebsiella pneumoniae >100,000 cfu Diet Heart Healthy, Diabetic Activity No restrictions Call your provider Fever or Chills, Shortness of breath, Bleeding, Chest pain, Vomitting, Excessive diarrhea, Weakness (unilateral) Patient Instructions Follow-up plan We have scheduled you for a follow up appointment with Dr Tobias in the [facility] for 09/18/2016 at 10:30am. Please contact the clinic earlier if you have any concerns. Follow-up Provider: Alfredo Tobias Benjamin P DO 08/28/16 1555: Discharge Instructions Attending's Statement Read and agree Connie Clarke DO Aug 28, 2016 09:36 Jordan Akins DO Aug 28, 2016 15:55
--- NOTE | 2016-08-28 10:55 | PCM.DC.MED ---
Discharge Summary Date of Service Aug 28, 2016 Dates of Hospitalization Date of Hospital Admission Aug 24, 2016 at 18:04 Date of Discharge: Aug 28, 2016 Providers: Admitting Physician: Grace Owens MD Primary Care Physician: Abelino Attending Physician: Grace Owens MD Diagnosis at Time of Discharge Diagnosis at Time of Discharge Altered Mental Status, back to baseline at discharge Urinary Tract Infection, present on admission with antibiotics to complete at home Essential Hypertension, chronic and stable Coronary Artery Disease on eliquis, stable Diabetes Mellitus, Type II, stable Hypercholesterolemia, stable with good lipid panel results Procedures XRay, CTs & MRIs Brain MRI: IMPRESSION: 1. No acute intracranial disease process. 2. No areas of acute or chronic infarction. 3. Mild, diffuse volume loss. 4. Minimal periventricular and subcortical white matter chronic microvascular ischemic changes. Dictated by: Oralia Costa MD, PhD on 08/25/2016 at 15:05 Doppler US of the bilateral carotid arteries: IMPRESSION: 1. Lateral mild calcified plaque in the carotid bulbs with narrowing of less than 50%. Dictated by: Jonathan Mohan M.D. on 08/25/2016 at 9:53 CT brain: IMPRESSION: No acute intracranial abnormality. Cardiac Echo Impression Transthoracic Echo: Interpretation Summary The left ventricle is normal in size. Left ventricular systolic function is normal. The ejection fraction is estimated to be 55-60%. LVEF is unchanged since prior study. There are no focal wall motion abnormalities. Assessment of diastolic parameters suggests a pseudonormalization pattern, consistent with elevated filling pressures. The right ventricle is normal in size and function. The right ventricular systolic pressure is estimated at 43 mmHg assuming a right atrial pressure of 8 mm Hg. The left atrium is severely dilated. The right atrium is moderately dilated. There is moderate mitral regurgitation. There is mild to moderate tricuspid regurgitation as well. TR has decreased and MR has slightly increased. There is no other significant valvular heart disease. The ascending aorta is mildly enlarged. There is no obvious cardiac source of embolus noted on this transthoracic echocardiogram. Follow-up with a [facility] is suggested if cardiac source is still suspected. 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 No prior CVA. She had headaches throughout the week intermittently, and generalized weakness and falling with her cane x3 this week. She had been told by PCP to use walker. Eliquis was started by sheet rock applier. In the ER, confusion resolved/left facial droop resolved/word finding resolved/ dysarthria resolved, hypertension 183/63, Sinus rhythm. Speech therapist- advance diet to thin and soft with medications, Maltese indicated no TPA. UA positive, Rocephin, CT head negative. Her urine culture grew Klebsiella pneumoniae, both MR and CT of the brain without acute abnormality. Hospital Course The following were addressed during this hospitalization: Anahy is a 76yo female with a hx of CAD s/p CABG and atrial fibrillation s/p successful cardioversion on Eliquis who has been admitted for the treatment of altered mental status initially thought to possibly be a CVA, found to be a UTI. 1. Altered Mental Status, improved - Secondary to UTI - Pt initially presented with symptoms suggestive of an acute CVA however MRI of the brain was negative - Mentation is significantly improved 2. Urinary Tract Infection, Present on admission - Urine culture positive for K. Pneumoniae - Received [id number] daily for 1 day, then 2g daily for 3 days prior to discharge - Discharged on ciprofloxacin as she is allergic to PCN 3. Essential Hypertension, stable - Continued home antihypertensive regimen - Monitored BP closely 4. Coronary Artery Disease, stable - Pt has a hx of CABG in 2002 - Pt is not presently on Aspirin but is on Eliquis 5. Diabetes Mellitus, Type II - Medium dose correctional lispro insulin given during this hospitalization 6. Hypercholesterolemia, stable and controlled - Atorvastatin qHS Exam Vital Signs (Last) Date Time Temp Pulse Resp B/P Pulse Ox O2 Delivery O2 Flow Rate FiO2 08/28/16 08:51 36.7 66 18 128/63 95 Room Air Exam On the date of discharge: General: Well appearing elderly female sitting up in bed, comfortable appearing upon my entering the room. No acute distress. Awake, alert, and oriented. Cooperative. HEENT: PERRLA. Moist mucus membranes. Tongue and uvula midline. Oropharynx without erythema Cardiovascular: RRR without murmur, rub, or gallop Respiratory: Good inspiratory effort without wheezes, rales, or rhonchi Abdomen: Normoactive bowel tones.Soft, nontender and nondistended. No CVA tenderness Neuro: Normal speech. No facial droop. Cranial nerves II-X intact. Normal finger to nose and heel to szymanski testing bilaterally. Known gait impairment secondary to a hip fracture in 02/2016. 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 Rises from bed to standing without assistance. Sporadically decreased short term memory. Psychiatric: Normal affect. Test 08/24/16 15:50 08/24/16 15:55 08/24/16 16:55 08/24/16 21:56 Hold Melgar Top Tube Received (Received) Activated Partial Thromboplast Time 24.1sec (22.8-33.0) Total Bilirubin 0.4mg/dL (0.0-1.2) Aspartate Amino Transf (AST/SGOT) 18U/L (0-50) Alanine Aminotransferase (ALT/SGPT) 11U/L (0-32) Alkaline Phosphatase 60U/L (25-165) Total Protein 7.1g/dL (6.4-8.4) Albumin 4.2g/dL (3.4-5.0) Urine Color Yellow (YELLOW) Urine Appearance Hazy (CLEAR,HAZY) Urine pH 6.0 (5.0-8.0) Urine Specific [place] 1.010 (1.003-1.035) Urine Protein Negativemg/dL (NEG,TRACE) Urine Glucose (UA) 250mg/dL (NEGATIVE) Urine Ketones Negativemg/dL (NEGATIVE) Urine Occult Blood Moderate (NEGATIVE) Urine Nitrite Negative (NEGATIVE) Urine Bilirubin Negative (NEGATIVE) Urine Urobilinogen Normalmg/dL (NORMAL) Urine Leukocyte Esterase Trace (NEGATIVE) Urine RBC 3-10/hpf (0-2) Urine WBC 6-10/hpf (0-5) Urine Epithelial Cells Few/hpf (NONE-MOD) Urine Crystals None seen (NONE SEEN) Urine Bacteria Many/hpf (NONE-FEW) Urine Hyaline Casts None/lpf (NONE) Urine Granular Casts None seen (NONE SEEN) Urine Waxy Casts None seen (NONE SEEN) Urine Red Blood Cell Casts None seen (NONE SEEN) Urine White Blood Cell Casts None seen (NONE SEEN) Urine Mucus None seen (None Seen) Urine Trichomonas None seen (NONE SEEN) Urine Yeast None (NONE SEEN) Urinalysis Comment None Urine Culture Reflexed Indicated Prothrombin Time 10.6sec (8.1-12.5) Prothromb Time International Ratio 0.99ratio Test 08/25/16 02:30 08/25/16 05:35 08/28/16 05:55 Troponin T 0.010ug/L (0.0-0.011) Triglycerides Level 71mg/dL (0-149) Cholesterol Level 152mg/dL (100-199) LDL Cholesterol, Calculated 59.800mg/dL (0-99) VLDL Cholesterol 14.200mg/dL HDL Cholesterol 78mg/dL (>39) Cholesterol/HDL Ratio 1.95 (0.0-4.4) White Blood Count 4.5th/mm3 (3.8-10.1) Red Blood Count 4.53mil/mm3 (3.90-5.20) Hemoglobin 12.1g/dL (12.0-15.6) Hematocrit 38.1% (35.0-46.0) Mean Corpuscular Volume 84.1fL (81-100) Mean Corpuscular Hemoglobin 26.7pg (27.0-35.0) Mean Corpuscular Hemoglobin Concent 31.8% (32.0-37.0) Red Cell Distribution Width 14.5% (12.3-15.4) Platelet Count 163bil/L (150-400) Neutrophils (%) (Auto) 38.4% (40-74) Lymphocytes (%) (Auto) 45.0% (14-46) Monocytes (%) (Auto) 11.2% (4-12) Eosinophils (%) (Auto) 4.5% (0-5) Basophils (%) (Auto) 0.9% (0-3) Sodium Level 141mEq/L (134-144) Potassium Level 4.4mEq/L (3.5-5.2) Chloride Level 104mEq/L (97-108) Carbon Dioxide Level 27mmol/L (18-29) Blood Urea Nitrogen 14mg/dL (8-27) Creatinine 0.43mg/dL (0.57-1.00) Estimat Glomerular Filtration Rate 206mL/min (>59) Glucose Level 176mg/dL (60-99) Calcium Level 9.9mg/dL (8.5-10.1) Microbiology Results Urine culture: Klebsiella Pneumoniae >100,000 cfu Discharge Medications Discharge Medications Apixaban (Eliquis) 5 Mg Tablet 5 MG PO BID Prescribed by: PORTILLO BETANCOURT DO Ciprofloxacin (Ciprofloxacin) 500 Mg Tablet 500 MG PO BID Take 1 tablet by mouth twice daily for 5 days Prescribed by: DESTINEY NATHAN DO Gabapentin (Gabapentin) 300 Mg Capsule 300 MG PO DAILY (Reported) Losartan Potassium (Losartan Potassium) 50 Mg Tablet 50 MG PO BID (Reported) Metformin (Metformin) 500 Mg Tablet 1,000 MG PO BID (Reported) Methocarbamol (Methocarbamol) 750 Mg Tablet 750 MG PO HS (Reported) Metoprolol Tartrate (Metoprolol Tartrate) 50 Mg Tablet 50 MG PO BID (Reported) Omeprazole (Omeprazole) 40 Mg Capsule.dr 40 MG PO DAILY (Reported) Propylthiouracil (Propylthiouracil) 50 Mg Tablet 50 MG PO DAILY (Reported) Rosuvastatin Calcium (Rosuvastatin Calcium) 20 Mg Tablet 20 MG PO QPM (Reported ) As needed Acetaminophen (Acetaminophen) 325 Mg Tablet 975 MG PO Q4H PRN PRN For Pain ( Reported) Additional med instructions You may return to taking your previous home medications with the addition of ciprofloxacin 1 tablet by mouth twice daily for 5 days. Make sure that you complete the entire course of antibiotic. Followup Plan Disposition: Home Follow-up plan We have scheduled you for a follow up appointment with Dr Tobias in the [facility] for 09/18/2016 at 10:30am. Please contact the clinic earlier if you have any concerns. Discharge Diet: Heart Healthy, Diabetic Discharge Activity: No restrictions Follow-up Provider: Alfredo Tobias DO Time spent 45 minutes Attending Statement I have seen and evaluated patient at bedside, in addition to directly supervising care provided by resident physician. I agree with above documentation. copies to: Alfredo Tobias Rachel M DO Aug 28, 2016 10:55 Jordan Akins DO Aug 28, 2016 15:57
--- NOTE | 2016-08-28 11:17 | NUR ---
Social Work-discharge: Data:EMR Reviewed. Pt is on day 4 of hospitalization for CVA per H&P. Pt is medically stable for discharge today. PT/OT have both cleared pt for home no needs. SW confirmed plan with pt at bedside, agreeable to plan. Pt's to provide transport home today. No discharge needs identified. SW will continue to follow if needs arise. Assessment:Pt who is independent at baseline. Plan:Pt to discharge home today via POV. No discharge needs identified. SW will continue to follow if needs arise. Antonette Ashley,PROGRESSIVE CARE NURSE
[2016-08-28 11:24] VITALS: PULSE 65
--- NOTE | 2016-08-28 12:39 | NUR ---
discharge Patient discharge to home with all belongings at 1219. Explained to patient new medication (ciprofloxacin), when next medications are due and discharge instructions. Patient verbalized understanding. Dc'd IV intact. Dc'd telemetry. Vitals stable. Patient left floor via wheelchair accompanied by CARBONATOR and with no signs of distress.
== END 2016-08-28 12:19 | disposition home or self-care (01) | DRG 690 ==
LOC: SED 15:39 → OBSVTOIN 18:04 → MPC 18:04
PROVIDERS: ADMIT Urology; ATTEND Urology
DX: N39.0 Urinary tract infection, site not specified (principal); I25.10 Atherosclerotic heart disease of native coronary artery without angina pectoris; R47.1 Dysarthria and anarthria; E11.9 Type 2 diabetes mellitus without complications; E78.00 Pure hypercholesterolemia, unspecified; E03.9 Hypothyroidism, unspecified; M16.12 Unilateral primary osteoarthritis, left hip; B96.1 Klebsiella pneumoniae [K. pneumoniae] as the cause of diseases classified elsewhere; R29.810 Facial weakness; Z98.61 Coronary angioplasty status; Z95.5 Presence of coronary angioplasty implant and graft